=== PATIENT | female | born 1990 | race African-American/Black ===

== ENCOUNTER 2022-02-07 18:36 | Emergency (ER) | payer OTHER, SELFPAY ==
--- NOTE | ~2022-02-07 | CT_ITS ---
EXAMINATION: CT chest abdomen pelvis wo con DATE: 02/07/2022 20:32 INDICATION: Shortness of breath. Left rib pain. Nausea and vomiting. TECHNIQUE: Computed tomography (CT) of the chest, abdomen, and pelvis was performed without intraveno us contrast. Automated exposure control and iterative reconstruction technique were employed. Exam do se: 1222.46 mGy-cm total exam DLP. COMPARISON: None FINDINGS: CHEST CT: The lungs are clear of infiltrate or consolidation. No pulmonary mass lesion. No hilar or mediastinal mass lesion or lymphadenopathy. Normal caliber of the thoracic aorta. Normal heart size. No pericardial or pleural effusion. ABDOMEN/PELVIS CT: The liver, gallbladder, spleen, pancreas and bile ducts and pancreatic duct appear normal. Normal morphology of the adrenal glands. Probable approximately 1 cm right lower pole renal cyst. Otherwise no renal mass lesion or urinary tr act calculus or hydroureteronephrosis. The urinary bladder is unremarkable. There is an IUD in expected position within the uterus. The uterus and adnexal areas are otherwise un remarkable. Normal caliber of the abdominal aorta. No intraperitoneal or retroperitoneal or pelvic mass lesion or adenopathy or ascites. Normal appendix. There are numerous diverticula of the sigmoid and descending colon; no CT evidence of diverticulitis. No bowel obstruction or intraperitoneal free air. Fat-containing umbilical hernia. Included skeletal structures are unremarkable. IMPRESSION: Diverticulosis of the left colon; no CT evidence of diverticulitis Probable right renal cyst IUD in expected position Normal appendix Reviewed, dictated and finalized at [facility]. Reviewed, dictated and finalized at [facility].
[2022-02-07 18:55] VITALS: BP 133/102; PULSE 94; RESP 20; TEMP 35.9; O2SAT 100
[2022-02-07 19:36] LABS: Basophils Absolute Auto 0.03 K/mm3 (0.00-0.10); Basophils Percent Auto 0.6 % (0.0-1.0); Eosinophils Absolute Auto 0.26 K/mm3 (0.02-0.50); Eosinophils Percent Auto 4.8 % (1.0-6.0); Hemoglobin 12.8 g/dL (12.0-15.0); Lymphocytes Absolute Auto 2.42 K/mm3 (1.10-4.50); Lymphocytes Percent Auto 44.6 % (18.0-42.0); Mean Corpuscular HGB Conc 33.7 g/dL (32.0-36.0); Mean Platelet Volume 9.1 fl (9.2-11.8); Monocytes Absolute Auto 0.64 K/mm3 (0.10-0.90); Monocytes Percent Auto 11.8 % (2.0-11.0); Neutrophils Absolute Auto 2.1 K/mm3 (1.7-7.2); Neutrophils Percent Auto 38.2 % (50.0-70.0); Platelet Count Result 319 K/mm3 (150-420); Red Blood Count 4.42 M/mm3 (4.20-5.40); Red Cell Distribution Width 15.6 % (11.6-14.4); White Blood Count 5.4 K/mm3 (4.8-10.8)
[2022-02-07 19:37] LABS: Add Urine Microscopic? YES; Appearance Urine Clear (Clear); Bilirubin Urine Negative (Negative); Blood Urine Negative (Negative); Color Urine Yellow (Yellow); Glucose Urine UA Negative (Negative); Ketones Urine Negative (Negative); Leukocyte Esterase Ur Trace (Negative); Nitrate Urine Negative (Negative); Protein Urine Negative (Negative); Urobilinogen Urine 0.2 mg/dL (0.2-1.0)
[2022-02-07] MEDS: PANTOPRAZOLE SODIUM IV 40 MG VIAL IV PUSH (19:48)
[2022-02-07] MEDS: ONDANSETRON INJ 4 MG/2 ML VIAL IV PUSH (19:48)
[2022-02-07] MEDS: SODIUM CHLORIDE 0.9% IV 1,000 ML 999 ML IV CONT (19:48)
[2022-02-07 19:52] LABS: Alanine Aminotransferase 43 U/L (14-59); Albumin Level 3.4 g/dL (3.4-5.0); Alkaline Phosphatase 65 U/L (46-116); Anion Gap 7 mmol/L (8-16); Aspartate Amino Transferase 31 U/L (15-37); Bilirubin,Total 0.6 mg/dL (0.00-1.00); Blood Urea Nitrogen 12 mg/dL (7-18); Calcium 8.7 mg/dL (8.5-10.1); Carbon Dioxide 25 mmol/L (21-32); Chloride 105 mmol/L (98-108); Estimated CRCL calculation 113 ml/min; Estimated Glomerular Filt Rate > 60; Glucose 118 mg/dL (70-99); Lipase 97 U/L (73-393); Osmolality Calculated 284 mOsm/kg (285-295); Potassium 3.6 mmol/L (3.5-5.1); Sodium 137 mmol/L (136-145); Total Protein 7.1 g/dL (6.4-8.2)
[2022-02-07 19:57] LABS: Lactic Acid Reflex 1.1 mmol/L (0.4-2.0)
[2022-02-07 20:09] LABS: Bacteria Urine Trace /hpf; RBC Urine 0-2 /hpf (0-2); Squamous Epithelial Cell Urine Few /hpf (Few); WBC Urine 0-3 /hpf (0-3)
[2022-02-07 20:11] LABS: Base Excess ABG -0.5 mmol/L (0-2); Fractional Inspired Oxygen 21 %; HCO3 ABG 22.9 mmol/L (23-29); Oxygen Content ABG 18.6 %vol (16.0-22.0); Oxygen Saturation ABG 98.3 % (95-97); PCO2 ABG 33.9 mmHg (35-45); PO2 ABG 112.8 mmHg (80-90); PO2 FiO2 Ratio Arterial Blood 5.37 %; Total Hemoglobin 13.4 g/dL (12.0-18.0); pH ABG 7.45 (7.35-7.45)
[2022-02-07 20:13] LABS: Influenza A QL RT-PCR Negative (Negative); Influenza B QL RT-PCR Negative (Negative); SARS-CoV-2 RNA PCR Negative (Negative)
[2022-02-07 20:13] LABS: Site Drawn RIGHT RADIAL
[2022-02-07 20:14] LABS: Device ROOM AIR; Modified Allen's Test Pass
[2022-02-07 20:16] LABS: Pregnancy On Board Control Positive; Urine Pregnancy Test Negative
--- NOTE | 2022-02-07 20:33 | ED.NAVMDI ---
HPI - Nausea/Vomiting/Diarrhea General Chief complaint: Nausea/Vomiting/Diarrhea Stated complaint: pain in back, abd pain Time Seen by Provider: 02/07/22 18:40 Source: patient and RN notes reviewed Mode of arrival: ambulatory Limitations: no limitations History of Present Illness MD elicited complaint: nausea, vomiting and diarrhea Onset (ago): day(s) (2) Description of vomiting: watery Description of diarrhea: watery Associated nausea: No Location of pain: LUQ Pain consistency: constant Severity: mild Pain scale (0-10): 5 Quality: stabbing and aching Exacerbating factors: none Relieving factors: none Associated symptoms: myalgias and nausea/vomiting Related Data Home Medications Medication Instructions Recorded Confirmed albuterol sulfate 90 mcg/actuation 2 inh inhalation Q4H PRN SOB 02/07/22 02/07/22 aerosol inhaler budesonide-formoterol HFA 160 2 inh inhalation BID 02/07/22 02/07/22 mcg-4.5 mcg/actuation aerosol inhaler (Symbicort) calcium carbonate 600 mg-vitamin 1 tablet PO DAILY 02/07/22 02/07/22 D3 10 mcg (400 unit) tablet fluoxetine 20 mg capsule 1 cap PO DAILY 02/07/22 02/07/22 hydroxyzine HCl 25 mg tablet 1 tablet PO TID 02/07/22 02/07/22 metronidazole 500 mg tablet 1 tablet PO BID 02/07/22 02/07/22 montelukast 10 mg tablet 1 tablet PO DAILY 02/07/22 02/07/22 multivitamin 1 tablet PO DAILY 02/07/22 02/07/22 potassium 99 mg tablet 99 mg PO DAILY 02/07/22 02/07/22 Allergies Allergy/AdvReac Type Severity Reaction Status Date / Time NSAIDS (Non-Steroidal AdvReac Gastrointestinal Verified 02/07/22 19:04 Anti-Inflamma Upset Review of Systems Review of Systems: All systems reviewed & are unremarkable except as noted in HPI and below Constitutional: Constitutional: Reports no additional constitutional complaints Eyes: Eyes: Reports no additional eye complaints ENT: Reports system reviewed and no additional complaints, except as documented Cardiovascular: Cardiovascular: Reports no additional cardiovascular complaints Respiratory: Respiratory: Reports no additional respiratory complaints Gastrointestinal: Gastrointestinal: Reports abdominal pain Genitourinary: Genitourinary: Reports no additional female genitourinary complaints Musculoskeletal: Musculoskeletal: Reports no additional musculoskeletal complaints Integumentary/Breasts: Skin/Breast: Reports system reviewed and no additional complaints, except as docu Neurologic: Reports system reviewed and no additional complaints, except as documented Psychiatric: Psychiatric: Reports no additional psychiatric complaints Endocrine: Endocrine: Reports no additional endocrine complaints Hematologic/Lymphatic: Hematologic/Lymphatic: Reports no additional hematologic/lymphatic complaints Allergic/Immunologic: Allergic/Immunologic: Reports no additional allergic/immunologic complaints PMFSH Past Medical History Medical History (Updated 02/08/22 @ 01:13 by Moira Gannon MD) Gastroenteritis Exam Const: General: healthy appearing and no acute distress Nutritional Appearance: well nourished Orientation/consciousness: patient oriented x3 Limitations: no limitations HENMT: Head: normal to inspection Ears: external ears normal, TM's normal bilaterally and EAC's normal General nose exam: Normal external nose present and Normal nares present Face and sinus: normal facial exam and sinuses nontender Mouth: Yes Normal oral and palatal mucosa present and Yes moist mucous membranes Teeth and gingiva: dentition normal Throat: posterior oropharynx normal Eyes: Conjunctivae: conjunctivae normal Pupils: Equal, round and reactive pupils present EOM: EOMs intact bilaterally Neck: Neck: normal visual inspection, no lymphadenopathy and no meningeal signs Chest: Chest palpation & inspection: normal inspection of the chest Resp: Effort & Inspection: normal respiratory effort Auscultation: clear to auscultation bilaterally Cardio: Rat
[2022-02-07 20:37] VITALS: BP 116/85; PULSE 72; O2SAT 99
--- NOTE | 2022-02-07 21:56 | PC.NURSE ---
[facility]
[2022-02-07 21:57] VITALS: BP 121/79; PULSE 84; RESP 16; TEMP 36.8; O2SAT 100
--- NOTE | 2022-02-07 22:23 | PC.NURSE ---
[facility] arrived to transport patient.
== END 2022-02-07 22:24 | disposition home or self-care (01) ==
PROVIDERS: Emergency Provider Emergency Medicine; PCP Family Medicine
DX: K52.9 Noninfective gastroenteritis and colitis, unspecified (principal); B34.9 Viral infection, unspecified; N39.0 Urinary tract infection, site not specified; Z20.822 Contact with and (suspected) exposure to COVID-19
CPT/HCPCS: 36415; 36600; 71250; 74176; 80053; 81001; 81025; 82805; 83605; 83690; 85025; 87081; 87147; 87502; 87880; 96361; 96365; 96375; 99284; C9113; C9803; J0696; J2405; J7030; U0003; U0005

== ENCOUNTER 2024-03-26 08:53 | Emergency (ER) | payer OTHER, SELFPAY ==
--- NOTE | ~2024-03-26 | XR_ITS ---
EXAMINATION: XR chest 2V DATE: 03/26/2024 11:08 INDICATION: Chest pain. TECHNIQUE: Frontal and lateral views of the chest were obtained. COMPARISON: Chest CT 02/07/2022 FINDINGS: There is no pneumonia, pleural effusion, or pneumothorax. The heart size is normal. IMPRESSION: 1. No acute cardiopulmonary disease. Reviewed, dictated and finalized at [facility].
[2024-03-26 09:01] VITALS: BP 120/102; PULSE 106; RESP 19; TEMP 36.7; O2SAT 96
--- NOTE | 2024-03-26 10:19 | ECG_ITS ---
Test Date: 2024-03-26 11:36:47 Measurements Intervals [place] Rate: 94 P: 16 CT: 132 QRS: -5 QRSD: 94 T: 11 QT: 427 QTc: 535 Interpretive Statements SINUS RHYTHM INFERIOR MYOCARDIAL INFARCTION , PROBABLY OLD [40+ ms Q WAVE AND/OR ST/T ABNORMALITY IN II/aVF] ANTEROSEPTAL MYOCARDIAL INFARCTION , OF INDETERMINATE AGE [40+ ms Q WAVE IN V1-V4] No previous ECG available for comparison Electronically Signed On 03-27-2024 10:30:00 CDT by Gian Ty M.D.
[2024-03-26] MEDS: SODIUM CHLORIDE 0.9% IV 1,000 ML 999 ML IV CONT (11:25)
[2024-03-26] MEDS: KETOROLAC 30 MG/ML VIAL (*BKC) IV PUSH (11:25)
[2024-03-26] MEDS: CYCLOBENZAPRINE HCL 10 MG TABLET PO (11:26)
[2024-03-26 11:29] VITALS: PULSE 100; RESP 20; O2SAT 99
[2024-03-26 11:32] VITALS: BP 130/105; PULSE 98; RESP 20; O2SAT 99
[2024-03-26 11:47] LABS: Basophils Percent Auto 0.3 % (0.2-1.2); Eosinophils Absolute Auto 0.2 K/mm3 (0-0.3); Eosinophils Percent Auto 2.8 % (0-4.4); Hematocrit 38.5 % (37.0-47.0); Immature Granulocyte Absolute 0.01 K/mm3 (0.00-0.031); Immature Granulocyte Percent A 0.1 % (0-0.5); Lymphocytes Absolute Auto 2.24 K/mm3 (0.9-3.2); Lymphocytes Percent Auto 28.5 % (18.3-44.2); Mean Corpuscular HGB Conc 33.8 g/dl (32-36); Mean Corpuscular Hemoglobin 28.8 pg (26-34); Mean Corpuscular Volume 85.4 fl (80-100); Mean Platelet Volume 9.3 fl (7.4-10.4); Monocytes Absolute Auto 0.9 K/mm3 (0.1-0.6); Monocytes Percent Auto 11.8 % (2.6-8.5); Neutrophils Absolute Auto 4.4 K/mm3 (1.3-6.7); Neutrophils Percent Auto 56.5 % (45.5-73.1); Platelet Count Result 344 k/mm3 (150-375); Red Blood Count 4.51 M/mm3 (4.2-5.4); White Blood Count 7.9 K/mm3 (4.5-10.0)
[2024-03-26 12:04] LABS: Alanine Aminotransferase 18 U/L (6-35); Albumin Level 4.5 g/dL (3.5-5.1); Alkaline Phosphatase 102 U/L (38-126); Anion Gap 13 mmol/L (4-12); Aspartate Amino Transferase 25 U/L (14-36); Bilirubin,Total 1.1 mg/dL (0.2-1.3); Blood Urea Nitrogen 16 mg/dL (7-17); Carbon Dioxide 25 mmol/L (22-30); Chloride 98 mmol/L (98-107); Estimated CRCL calculation 160 ml/min; Estimated Glomerular Filt Rate > 60; Glucose 93 mg/dL (65-110); Potassium 2.6 mmol/L (3.4-5.0); Prothrombin Time 13.1 Seconds (11.1-14.7); Sodium 136 mmol/L (137-145)
[2024-03-26 12:05] LABS: Partial Thromboplastin Time 24.8 Seconds (22.3-36.8)
[2024-03-26 12:12] LABS: Troponin I < 0.012 ng/mL (0.000-0.034)
[2024-03-26] MEDS: POTASSIUM CHLORIDE 20 MEQ ER TABLET 40 MEQ PO (12:12)
[2024-03-26 12:14] LABS: D Dimer 0.43 ug/mL (<0.48)
[2024-03-26] MEDS: KCL 20 MEQ/SW 100 ML 100 ML 50 MEQ IVPB (12:21)
--- NOTE | 2024-03-26 12:57 | ED.GENADULT ---
HPI - General Adult General Chief complaint: Unspecified Stated complaint: chest pain x months, L knee pain Time Seen by Provider: 03/26/24 10:02 History of Present Illness HPI narrative: patient is a 33-year-old female who presents ER with multiple complaints. She reports that she is having sharp back pain on left side, sharp chest pain on the right side and cramping in her legs. She has been having intermittent issues like this months. She has been seen at an ER in [place] where she lives. She is currently up here visiting family. Denies any aggravating or alleviating factors. No fevers or chills or sweats. No exertional modifications to her discomfort. She does reports some left knee pain and denies trauma. There is no swelling. She reports compliance with home medications. She recently had a Holter study performed, we do not know the results. Related Data Home Medications Medication Instructions Recorded Confirmed albuterol sulfate 90 mcg/actuation 2 inh inhalation Q4H PRN SOB 02/07/22 02/07/22 aerosol inhaler budesonide-formoterol HFA 160 2 inh inhalation BID 02/07/22 02/07/22 mcg-4.5 mcg/actuation aerosol inhaler (Symbicort) calcium carbonate 600 mg-vitamin 1 tablet PO DAILY 02/07/22 02/07/22 D3 10 mcg (400 unit) tablet fluoxetine 20 mg capsule 1 cap PO DAILY 02/07/22 02/07/22 hydroxyzine HCl 25 mg tablet 1 tablet PO TID 02/07/22 02/07/22 metronidazole 500 mg tablet 1 tablet PO BID 02/07/22 02/07/22 montelukast 10 mg tablet 1 tablet PO DAILY 02/07/22 02/07/22 multivitamin 1 tablet PO DAILY 02/07/22 02/07/22 potassium 99 mg tablet 99 mg PO DAILY 02/07/22 02/07/22 Allergies Allergy/AdvReac Type Severity Reaction Status Date / Time NSAIDS (Non-Steroidal AdvReac Gastrointestinal Verified 03/26/24 09:08 Anti-Inflamma Upset Review of Systems Review of Systems: All systems reviewed & are unremarkable except as noted in HPI and below Constitutional: Constitutional: Reports no additional constitutional complaints ENT: Reports system reviewed and no additional complaints, except as documented Cardiovascular: Cardiovascular: Reports chest pain, Denies rapid heart rate, Denies radiating jaw, neck or arm pain and Denies orthopnea Respiratory: Respiratory: Denies chest congestion, Denies cough, Denies pain on inspiration and Denies dyspnea Gastrointestinal: Gastrointestinal: Reports no additional gastrointestinal complaints Musculoskeletal: Musculoskeletal: Reports back pain, Reports arthralgias, Denies joint swelling, Reports muscle cramps and Denies stiffness PMFSH Past Medical History Medical History (Updated 03/26/24 @ 15:20 by Shashank Florian MD) Gastroenteritis GERD (gastroesophageal reflux disease) Hypertension Restless leg Surgical History Surgical History (Updated 03/26/24 @ 13:02 by Shashank Florian MD) No pertinent past surgical history Exam Narrative: GENERAL: Well-appearing, well-nourished, and in no acute distress. HEAD: Normocephalic, atraumatic. ENT: Mucous membranes moist. CHEST: Clear to auscultation. No respiratory distress. HEART: Regular rate and rhythm. Normal peripheral pulses. ABDOMEN: Soft, nontender, nondistended. back: No reproducible midline tenderness the T/L-spine. There is palpable spasm left lumbar paraspinal musculature near L3. EXTREMITIES: Normal range of motion. No edema. SKIN: Warm, dry, no rash. NEURO: Alert and oriented x3. PSYCH: Normal mood and affect. Course Course Emergency Course: Patient received Toradol / Flexeril for her pain. She also received IV fluid. Lab work significant for hypokalemia with a potassium of 2.6. Patient received 20 mEq IV and 40 mEq p.o.. Discussed discontinuing hydrochlorothiazide at home and we will start her on potassium supplementation over the next 3 days. She has follow-up with her PCP in 5 days. Vital Signs Vital signs: Vital Signs Temperature 98.0 F 03/26/24 09:01 Pulse R
[2024-03-26 13:41] LABS: Add Urine Microscopic? YES; Appearance Urine Clear (Clear); Bacteria Urine None Seen /hpf; Bilirubin Urine Negative (Negative); Blood Urine Negative (Negative); Color Urine Yellow (Yellow); Glucose Urine UA Negative (Negative); Ketones Urine Trace mg/dL (Negative); Leukocyte Esterase Ur Negative LEU/UL (Negative); Nitrate Urine Negative (Negative); Non Pathogenic Casts 0-2; Protein Urine Trace mg/dL (Negative); Specific Grav Ur 1.038 (1.001-1.035); Squamous Epithelial Cell Urine Occasional /hpf (Few); WBC Urine 0-5 /hpf (0-3); pH Urine 5.5 (5.0-9.0)
[2024-03-26] MEDS: SODIUM CHLORIDE 0.9% IV 250 ML 999 ML (13:58)
[2024-03-26 15:12] LABS: Anion Gap 7 mmol/L (4-12); Blood Urea Nitrogen 15 mg/dL (7-17); Calcium 8.6 mg/dL (8.4-10.2); Carbon Dioxide 28 mmol/L (22-30); Chloride 100 mmol/L (98-107); Estimated CRCL calculation 160 ml/min; Estimated Glomerular Filt Rate > 60; Glucose 95 mg/dL (65-110); Sodium 135 mmol/L (137-145)
[2024-03-26 15:39] VITALS: BP 131/92; PULSE 94; RESP 19; O2SAT 98
== END 2024-03-26 15:53 | disposition home or self-care (01) ==
PROVIDERS: Emergency Provider Emergency Medicine; PCP Family Medicine
DX: R25.2 Cramp and spasm (principal); E87.6 Hypokalemia; I10 Essential (primary) hypertension; K21.9 Gastro-esophageal reflux disease without esophagitis; G25.81 Restless legs syndrome; Z79.1 Long term (current) use of non-steroidal anti-inflammatories (NSAID); Z79.899 Other long term (current) drug therapy; R94.31 Abnormal electrocardiogram [ECG] [EKG]
CPT/HCPCS: 36415; 71046; 80048; 80053; 81001; 84484; 85025; 85380; 85610; 85730; 93005; 96361; 96365; 96366; 96375; 99284; A9270; J1885; J3480; J7030; J7050